=== PATIENT | male | born 1975 ===

== ENCOUNTER 2021-09-22 07:39 | Day surgery (SDC) | payer BC ==
[~2021-09-22 07:39] MED LIST: Lactated Ringers 1,000 ML IV SCH; Lidocaine 1%/Sod Bicarbonate in NS 8.4% 1 ML Syringe IDERM PRN; Sodium Chloride 0.9% 10 ML Syringe FLUSH PRN; Sodium Chloride 0.9% 10 ML Syringe FLUSH SCH
[2021-09-22] MEDS ORDERED: Propofol 200 MG/20 ML SDV ONE (07:48)
[2021-09-22] MEDS ORDERED: fentaNYL 100 MCG/2 ML SDV ONE (07:48)
[2021-09-22] MEDS ORDERED: Midazolam 1 MG/ML 2 ML SDV ONE (07:48)
[2021-09-22] MEDS ORDERED: Lidocaine 1% 4 ML ONE (07:50)
== END 2021-09-22 09:15 | disposition home or self-care (01) ==
LOC: JD.SDS 07:39
PROVIDERS: ATTEND Surgery
DX: K62.5 Hemorrhage of anus and rectum (principal); K20.0 Eosinophilic esophagitis; K31.89 Other diseases of stomach and duodenum; D72.820 Lymphocytosis (symptomatic); H90.11 Conductive hearing loss, unilateral, right ear, with unrestricted hearing on the contralateral side; E78.5 Hyperlipidemia, unspecified; E78.00 Pure hypercholesterolemia, unspecified; I10 Essential (primary) hypertension; Z79.899 Other long term (current) drug therapy; Z87.891 Personal history of nicotine dependence
CPT/HCPCS: 43239; 45378; J2250; J2704; J3010; J7120